=== PATIENT | female | born 1965 ===

== ENCOUNTER 2021-10-07 10:14 | Emergency (ER) | payer SELFPAY ==
--- NOTE | 2021-10-07 12:00 | Emergency Department Report ---
ED Female HPI - General Chief complaint: Abdominal Pain Stated complaint: BLOOD IN URINE Time Seen by Provider: 10/07/21 11:38 Source: patient Mode of arrival: Ambulatory Limitations: Language Barrier - History of Present Illness Initial comments: 56-year-old female with a past medical history of gastritis, diabetes and hypertension presents to the ER today with complaints of hematuria. Patient states that about 2 days ago she has been noticing blood in her urine with associated dysuria and frequency. She reports also mild nausea and mild low ab dominal pain but no back pain, no vomiting, fever or chills. MD Complaint: dysuria, other (Hematuria) -: days(s) (2) - Related Data Previous Rx's Medication Instructions Recorded Last Taken Type Phenazopyridine [Pyridium] 200 mg PO TID PRN #9 tab 10/07/21 Unknown Rx cephALEXin [Keflex] 500 mg PO Q6HR #40 capsule 10/07/21 Unknown Rx Allergies Allergy/AdvReac Type Severity Reaction Status Date / Time No Known Allergies Allergy Unverified 10/07/21 12:55 ED Review of Systems ROS: Stated complaint: BLOOD IN URINE Other details as noted in HPI Comment: All other systems reviewed and negative Constitutional: denies: chills, fever Eyes: denies: eye pain, eye discharge, vision change ENT: denies: ear pain, throat pain Respiratory: denies: cough, shortness of breath, SOB with exertion, SOB at rest, wheezing Cardiovascular: denies: chest pain, palpitations Endocrine: no symptoms reported Gastrointestinal: abdominal pain, nausea. denies: vomiting, diarrhea, constipation, hematemesis, melena, hematochezia Genitourinary: dysuria, frequency, hematuria. denies: discharge, abnormal menses, dyspareunia Musculoskeletal: denies: back pain, joint swelling, arthralgia, myalgia Skin: denies: rash, lesions, change in color, change in hair/nails, pruritus Neurological: denies: headache, weakness, numbness, paresthesias, confusion, abnormal gait, vertigo Psychiatric: denies: anxiety, depression, auditory hallucinations, visual hallucinations, homicidal thoughts, suicidal thoughts Hematological/Lymphatic: denies: easy bleeding, easy bruising, swollen glands ED Past Medical Hx - Medications Home Medications: Home Medications Medication Instructions Recorded Confirmed Last Taken Type Phenazopyridine [Pyridium] 200 mg PO TID PRN #9 tab 10/07/21 Unknown Rx cephALEXin [Keflex] 500 mg PO Q6HR #40 capsule 10/07/21 Unknown Rx ED Physical Exam - General Limitations: Language Barrier General appearance: alert, in no apparent distress - Head Head exam: Present: atraumatic, normocephalic, normal inspection - Neck Neck exam: Present: normal inspection, full ROM. Absent: meningismus - Respiratory Respiratory exam: Present: normal lung sounds bilaterally. Absent: respiratory distress, wheezes, rales, rhonchi - Cardiovascular Cardiovascular Exam: Present: regular rate, normal rhythm, normal heart sounds - GI/Abdominal GI/Abdominal exam: Present: soft. Absent: distended, tenderness, guarding, rebound - Back Exam Back exam: Present: normal inspection, full ROM. Absent: CVA tenderness (R), CVA tenderness (L) - Neurological Exam Neurological exam: Present: alert, oriented X3, CN II-XII intact, normal gait - Psychiatric Psychiatric exam: Present: normal affect, normal mood - Skin Skin exam: Present: intact ED Course Vital Signs 10/07/21 15:02 Temperature 98.1 F Pulse Rate 91 H Respiratory 17 Rate Blood Pressure 130/68 O2 Sat by Pulse 100 Oximetry ED Medical Decision Making - Lab Data Result diagrams: 10/07/21 12:12 - Medical Decision Making CBC unremarkable. Urinalysis is concerning for UTI. Patient currently sitting comfortably in the room. She is not in any sign ificant distress. She is not toxic or ill-appearing. She appears well- hydrated. She has a soft nontender abdomen. No CVA tenderness on exam. She is neurologically intact with a normal gait. Vital signs are stable. Discussed results with patient, discussed diagnosis and treatment plan with antibiotics for patient. Recommend she increase her water intake. Recommend follow-up with her primary care doctor either this week or next week. Patient expressed understanding of all instructions and agree with plan. Patient stable at time of discharge. Critical care attestation.: If time is entered above; I have spent that time in minutes in the direct care of this critically ill patient, excluding procedure time. ED Disposition Clinical Impression: UTI (urinary tract infection) Disposition: HOME / SELF CARE / HOMELESS Is pt being admited?: No Does the pt Need Aspirin: No Condition: Stable Instructions: Phenazopyridine tablets, Urinary Tract Infection, Adult, [id number], Abdominal Pain (ED) Additional Instructions: I recommend taking the keflex , the antibiotic as prescribed to completion. Take the Pyridium as prescribed, it will change her urine orange.. I do recommend drinking lots of fluids. I recommend close follow-up with your primary care doctor this week or next week. Return to the ER if your symptoms worsens in any way. Prescriptions: cephALEXin [Keflex] 500 mg PO Q6HR #40 capsule Phenazopyridine [Pyridium] 200 mg PO TID PRN #9 tab PRN Reason: dysuria Referrals: PRIMARY CARE, [Primary Care Provider] - 3-5 Days Time of Disposition: 14:57 Print Language: MOHAWK
[2021-10-07 12:46] LABS: Basophils # (Auto) 0.1 K/mm3 (0.0-0.1); Basophils % (Auto) 1.2 % (0.0-1.8); Eosinophils # (Auto) 0.1 K/mm3 (0.0-0.4); Eosinophils % (Auto) 1.4 % (0.0-4.3); Hematocrit 40.7 % (30.3-42.9); Hemoglobin 13.5 gm/dl (10.1-14.3); Lymphocytes # (Auto) 2.4 K/mm3 (1.2-5.4); Lymphocytes % (Auto) 38.2 % (13.4-35.0); Mean Corpuscular HGB Conc 33 % (30-34); Mean Corpuscular Volume 91 fl (79-97); Monocytes # (Auto) 0.5 K/mm3 (0.0-0.8); Monocytes % (Auto) 8.4 % (0.0-7.3); Platelet Count 193 K/mm3 (140-440); Red Blood Count 4.46 M/mm3 (3.65-5.03); Red Cell Distribution Width 13.6 % (13.2-15.2)
[2021-10-07 14:51] LABS: Bacteria,Urine 1+ /HPF (Negative); Bilirubin,Urine NEG (Negative); Blood,Urine MOD (Negative); Color,Urine Yellow (Yellow); Mucus,Urine FEW /HPF; Protein,Urine <15 mg/dL mg/dL (Negative); Urobilinogen,Urine < 2.0 mg/dL (<2.0)
[2021-10-07 14:52] LABS: HCG Qualitative,Urine Negative (Negative)
[2021-10-07 15:27] VITALS: BP 130/68
== END 2021-10-07 15:27 | disposition home or self-care (01) ==
LOC: ED 10:14
DX: N39.0 Urinary tract infection, site not specified (principal); Z79.899 Other long term (current) drug therapy
CPT/HCPCS: 36415; 81001; 81025; 85025; 87086; 99283

== ENCOUNTER 2022-03-06 17:45 | Emergency (ER) | payer SELFPAY ==
[2022-03-06 18:33] VITALS: BP 140/82
[2022-03-06 19:44] LABS: Bilirubin,Urine NEG (Negative); Blood,Urine NEG (Negative); Color,Urine Yellow (Yellow); Protein,Urine <15 mg/dL mg/dL (Negative); Urobilinogen,Urine < 2.0 mg/dL (<2.0)
[2022-03-06 20:10] LABS: RBC,Urine < 1.0 /HPF (0.0-6.0); WBC,Urine < 1.0 /HPF (0.0-6.0)
[2022-03-07] MEDS ORDERED: SODIUM CHLORIDE 0.9% 1000 ML 1,000 ML IV ONE (03:02)
--- NOTE | 2022-03-07 03:27 | XRay Report ---
CHEST 1 VIEW INDICATION / CLINICAL INFORMATION: cough. COMPARISON: None available. FINDINGS: SUPPORT DEVICES: None. HEART / MEDIASTINUM: No significant abnormality. LUNGS / PLEURA: No significant pulmonary or pleural abnormality. No pneumothorax. ADDITIONAL FINDINGS: No significant additional findings. IMPRESSION: 1. No acute findings. Signer Name: Nael Ly MD Signed: 03/07/2022 3:23 AM Workstation Name: [id number]
[2022-03-07 04:09] LABS: Basophils # (Auto) 0.1 K/mm3 (0.0-0.1); Eosinophils # (Auto) 0.2 K/mm3 (0.0-0.4); Eosinophils % (Auto) 2.9 % (0.0-4.3); Hematocrit 38.5 % (30.3-42.9); Hemoglobin 13.2 gm/dl (10.1-14.3); Lymphocytes % (Auto) 45.9 % (13.4-35.0); Mean Corpuscular HGB Conc 34 % (30-34); Mean Corpuscular Volume 90 fl (79-97); Monocytes % (Auto) 11.8 % (0.0-7.3); Platelet Count 209 K/mm3 (140-440); Red Cell Distribution Width 13.7 % (13.2-15.2)
[2022-03-07 04:20] LABS: Alanine Aminotransferase 16 units/L (7-56); Albumin 4.6 g/dL (3.9-5); Blood Urea Nitrogen 10 mg/dL (7-17); Calcium 9.4 mg/dL (8.4-10.2); Hemolysis Index 3
[2022-03-07 04:28] LABS: BUN/Creatinine Ratio 14
--- NOTE | 2022-03-07 04:57 | Emergency Department Report ---
ED N/V/D HPI - General Chief complaint: Nausea/Vomiting/Diarrhea Stated complaint: FEELING FAINT Source: patient Mode of arrival: Ambulatory Limitations: No Limitations - History of Present Illness Initial comments: Per family, patient is a 57-year-old Japanese female with past medical history of hypertension and teb-phulzuf-ikzauztmu diabetes who presents to the ED with complaint of acute onset persistent intermittent lightheadedness and nausea for the last 12 hours. Patient states that she also felt generalized weakness and fatigue and stated that she had similar symptoms about a few months ago when she was diagnosed with acute urinary tract infection. Patient states that she also felt that she may be developing acute urinary tract infection again. Patient however denies dizziness, syncope, chest pain or shortness of breath, abdominal pain, vomiting, diarrhea, dysuria, urinary frequency and urgency, low back pain, fever and chills or cough. MD complaint: nausea, other (Generalized weakness and lightheadedness) -: hour(s) (12) Associated Abdominal Pain: No Location: diffuse Radiation: none Severity: mild Quality: dull Consistency: intermittent Improves with: rest Worsens with: none Associated Symptoms: denies other symptoms, malaise, nausea/vomiting. denies: myalgias, chest pain, cough, diaphoresis, fever/chills, headaches, loss of appetite, rash, dysuria, shortness of breath, syncope - Related Data Previous Rx's Medication Instructions Recorded Last Taken Type Phenazopyridine [Pyridium] 200 mg PO TID PRN #9 tab 10/07/21 Unknown Rx cephALEXin [Keflex] 500 mg PO Q6HR #40 capsule 10/07/21 Unknown Rx Ondansetron [Zofran Odt] 4 mg PO Q8HR PRN #20 tab.rapdis 03/07/22 Unknown Rx Allergies Allergy/AdvReac Type Severity Reaction Status Date / Time No Known Allergies Allergy Verified 03/06/22 18:33 ED Review of Systems ROS: Stated complaint: FEELING FAINT Other details as noted in HPI Constitutional: malaise, weakness, other (Lightheadedness). denies: chills, fever Eyes: denies: eye pain, eye discharge, vision change ENT: denies: ear pain, throat pain Respiratory: denies: cough, shortness of breath, wheezing Cardiovascular: denies: chest pain, palpitations Endocrine: no symptoms reported Gastrointestinal: nausea. denies: abdominal pain, diarrhea Genitourinary: denies: urgency, dysuria, discharge Musculoskeletal: denies: back pain, joint swelling, arthralgia Skin: denies: rash, lesions Neurological: denies: headache, weakness, paresthesias Psychiatric: denies: anxiety, depression Hematological/Lymphatic: denies: easy bleeding, easy bruising ED Past Medical Hx - Past Medical History Previous Medical History?: Yes Hx Hypertension: Yes Hx Diabetes: Yes - Medications Home Medications: Home Medications Medication Instructions Recorded Confirmed Last Taken Type Phenazopyridine [Pyridium] 200 mg PO TID PRN #9 tab 10/07/21 Unknown Rx cephALEXin [Keflex] 500 mg PO Q6HR #40 capsule 10/07/21 Unknown Rx Ondansetron [Zofran Odt] 4 mg PO Q8HR PRN #20 tab.rapdis 03/07/22 Unknown Rx ED Physical Exam - General Limitations: No Limitations General appearance: alert, in no apparent distress - Head Head exam: Present: atraumatic, normocephalic, normal inspection - Eye Eye exam: Present: normal appearance, PERRL, EOMI Pupils: Present: normal accommodation - ENT ENT exam: Present: normal exam, normal orophraynx, mucous membranes moist, TM's normal bilaterally, normal external ear exam - Neck Neck exam: Present: normal inspection, full ROM. Absent: tenderness - Respiratory Respiratory exam: Present: normal lung sounds bilaterally. Absent: respiratory distress, wheezes, rales, stridor, chest wall tenderness, accessory muscle use, decreased breath sounds - Cardiovascular Cardiovascular Exam: Present: normal rhythm, tachycardia, normal heart sounds. Absent: systolic murmur, diastolic murmur, rubs, gallop - GI/Abdominal GI/Abdominal exam: Present: soft, normal bowel sounds. Absent: tenderness, hyperactive bowel sounds, hypoactive bowel sounds, organomegaly - Extremities Exam Extremities exam: Present: normal inspection, full ROM, normal capillary refill. Absent: tenderness - Back Exam Back exam: Present: normal inspection, full ROM. Absent: tenderness, CVA tenderness (R), CVA tenderness (L), muscle spasm, vertebral tenderness - Neurological Exam Neurological exam: Present: alert, oriented X3, CN II-XII intact, normal gait, reflexes normal - Psychiatric Psychiatric exam: Present: normal affect, normal mood - Skin Skin exam: Present: warm, dry, intact, normal color. Absent: rash ED Course Vital Signs 03/06/22 18:27 Temperature 98.4 F Pulse Rate 107 H Respiratory 14 Rate Blood Pressure 140/82 O2 Sat by Pulse 99 Oximetry ED Medical Decision Making - Lab Data Result diagrams: 03/07/22 03:19 03/07/22 03:19 - Radiology Data Radiology results: report reviewed [facility] [address] [place] [address] XRay Report Signed Patient: BRIAN CARROLL MR#: [id number] : 1965 Acct:[id number] Age/Sex: 57 / F ADM Date: 03/06/22 Loc: ED Attending Dr: Ordering Physician: LATIA SALEH Date of Service: 03/07/22 Procedure(s): XR chest 1V ap Accession Number(s): [id number] cc: LATIA SALEH Fluoro Time In Minutes: CHEST 1 VIEW INDICATION / CLINICAL INFORMATION: cough. COMPARISON: None available. FINDINGS: SUPPORT DEVICES: None. HEART / MEDIASTINUM: No significant abnormality. LUNGS / PLEURA: No significant pulmonary or pleural abnormality. No pneumothorax. ADDITIONAL FINDINGS: No significant additional findings. IMPRESSION: 1. No acute findings. Signer Name: Nael Ly MD Signed: 03/07/2022 3:23 AM Workstation Name: [id number] Transcribed By: TL Dictated By: Nael Ly MD Electronically Authenticated By: Neal Ly MD Signed Date/Time: 03/07/22322 DD/ 1 TD/TT: - Medical Decision Making This is a 57-year-old Japanese female with past medical history of hypertension and kel-nwbwqud-acwyfcbev diabetes who presents to the ED with complaint of acute onset persistent intermittent lightheadedness and nausea for the last 12 hours. Patient states that she also felt generalized weakness and fatigue and stated that she had similar symptoms about a few months ago when she was diagnosed with acute urinary tract infection. Patient states that she also felt that she may be developing acute urinary tract infection again. In the ED, patient is alert and oriented x3 and is not in any distress. Patient was treated in the ED for nausea and also given normal saline 1 L IV bolus x1. Chest x-ray showed no acute cardiopulmonary abnormalities or pneumonitis. All lab test results were reviewed and are all nonactionable including urinalysis. On reevaluation, patient felt better, patient will discharge home on antiemetics and advised to follow-up with her primary care physician in 5 to 7 days for reevaluation or return to the ED immediately if symptoms get worse. - Differential Diagnosis Dehydration; UTI; pneumonia; viral syndrome; Critical care attestation.: If time is entered above; I have spent that time in minutes in the direct care of this critically ill patient, excluding procedure time. ED Disposition Clinical Impression: Episodic lightheadedness, Nausea alone Disposition: HOME / SELF CARE / HOMELESS Is pt being admited?: No Does the pt Need Aspirin: No Condition: Stable Instructions: Near-Syncope, [id number], Nausea and Vomiting, Adult, [id number] Additional Instructions: All lab test results were reviewed and are all nonactionable. Chest x-ray showed no acute cardiopulmonary abnormalities or pneumonitis. Urinalysis test was unremarkable with no sign of urinary tract infection. Therefore take medication as advised, drink plenty of fluids and follow-up with your primary care physician in 7 to 10 days for reevaluation. Return to the ED immediately if symptoms get worse Prescriptions: Ondansetron [Zofran Odt] 4 mg PO Q8HR PRN #20 tab.rapdis PRN Reason: Nausea Referrals: [facility] [Provider Group] - 7-10 days Time of Disposition: 04:58 Print Language: PORTUGUESE
== END 2022-03-07 05:28 | disposition home or self-care (01) ==
LOC: ED 17:45
DX: R42 Dizziness and giddiness (principal); R11.0 Nausea; I10 Essential (primary) hypertension; E11.9 Type 2 diabetes mellitus without complications
CPT/HCPCS: 36415; 71045; 80053; 81001; 83690; 85025; 96360; 99284; J7030